=== PATIENT | female | born 1990 | race Caucasian/White ===

== ENCOUNTER 2017-10-01 14:26 | Emergency (ER) | payer OTHER ==
[~2017-10-01] VITALS: Ht 165.1 cm; Wt 112.2 kg
[~2017-10-01 14:26] MED LIST: ALBU0.0912 IH; ETAN50SO SUBQ; [UNRECOGNIZED DRUG - REMARK]
[2017-10-01 14:44] VITALS: BP 115/74
--- NOTE | 2017-10-01 15:30 | NUR ---
PT CAME IN FOR GENERALIZED ACHE, NAUSEA, AND COUGH, X3 DAYS. NO RESPIRATORY DISTRESS. A&OX4. ABLE TO VERBALIZE NEEDS. SITTING IN CHAIR WITH FAMILY SIDE. MD AWARE CONTINUE TO MONITOR.
[2017-10-01 15:43] VITALS: BP 115/74
--- NOTE | 2017-10-01 15:49 | NUR ---
Patient discharged with v/s stable. Written and verbal after care instructions given and explained. Patient alert, oriented and verbalized understanding of instructions. Ambulatory with steady gait. All questions addressed prior to discharge. ID band removed. Patient advised to follow up with PMD. Rx of ZOFRAN, IBUPROEN, TAMIFLU given. Patient educated on indication of medication including possible reaction and side effects. Opportunity to ask questions provided and answered.
== END 2017-10-01 15:49 | disposition home or self-care (01) ==
LOC: MED 14:26
DX: J11.1 Influenza due to unidentified influenza virus with other respiratory manifestations (principal); J45.909 Unspecified asthma, uncomplicated; Z88.6 Allergy status to analgesic agent
CPT/HCPCS: 36415; 71045; 87804; 99285

== ENCOUNTER 2018-11-14 14:56 | Emergency (ER) | payer OTHER ==
[~2018-11-14] VITALS: Ht 165.1 cm; Wt 112.5 kg
[2018-11-14 15:33] VITALS: BP 124/76
--- NOTE | 2018-11-14 17:00 | NUR ---
PT AMBULATED TO BED 12.
--- NOTE | 2018-11-14 17:00 | NUR ---
PATIENT PRESENTS TO ED WITH C/O SUDDEN ONSET OF N/V, DIZZINESS, AND GENERALIZED WEAKNESS X TODAY AMBULATORY WITH STEADY GAIT, FULL CLEAR SPEECH, NO RECENT INJURY OR COLD SYMPTOMS . DENIES WATERY/LOOSE STOOLS. SKIN IS PINK/WARM/DRY; AAOX4 WITH EVEN AND STEADY GAIT; LUNGS CLEAR BL; HR EVEN AND REGULAR; PT DENIES ANY FEVER, CP, SOB, OR COUGH AT THIS TIME; PATIENT STATES PAIN OF 0/10 AT THIS TIME; VSS; PATIENT POSITIONED FOR COMFORT; HOB ELEVATED; BEDRAILS UP X2; BED DOWN. ER MD MADE AWARE OF PT STATUS.
--- NOTE | 2018-11-14 17:15 | NUR ---
HANDED PT WATER; ENCOURAGED TO PROVIDE URINE SAMPLE
[2018-11-14] MEDS ORDERED: ONDANSETRON 4 MG TAB PO ONE (18:00)
--- NOTE | 2018-11-14 18:13 | NUR ---
PT VERBALIZED ALLOWING HER DAUGHTER CHAN CARRILLO TO ALL AND FULL DISCLOSURE OF HER HEALTH INFORMATION.
[2018-11-14 18:34] VITALS: BP 128/71
== END 2018-11-14 18:25 | disposition home or self-care (01) ==
LOC: MED 14:56
DX: B34.9 Viral infection, unspecified (principal); J45.909 Unspecified asthma, uncomplicated; Z88.6 Allergy status to analgesic agent; Z79.899 Other long term (current) drug therapy; Z98.890 Other specified postprocedural states
CPT/HCPCS: 99283; Q0162

== ENCOUNTER 2019-03-02 22:48 | Emergency (ER) | payer OTHER ==
[~2019-03-02] VITALS: Ht 165.1 cm; Wt 95.3 kg
[2019-03-02 22:51] VITALS: BP 150/95
--- NOTE | 2019-03-02 22:56 | NUR ---
PT AMBULATED TO BED 3. PROVIDED WITH URINE CUP.
--- NOTE | 2019-03-02 23:10 | NUR ---
PT BIB SELF C/O CHEST PAIN W/ BREATHING. PT STATES SHE WAS AT WORK AROUND 1730 W/ SUDDEN ONSET OF CHEST PAIN W/ INSPIRATION, PT FELT LIKE SHE COULD NOT CATCH HER BREATH; DENIES FEVER OR CHILLS. PT STATES 10/10 PAIN W/ INSPIRATION, DISCRIBED AT PULLING/TIGHTNESS. PT ACTING APPROPRIATLY, SPEAKING IN CLEAR AND COMPLETE SENTENCES. BREATHING EQUAL AND UNLABORED; LUNGS SOUNDS CLEAR BL. PT IN BED; BED IN LOWER LOCKED POSITION; PT PLACED ON BEDSIDE ROLL MACHINE OPERATOR. PMH: ASTHMA,
--- NOTE | 2019-03-02 23:12 | NUR ---
DR. PARTIDA AT BEDSIDE FOR EVALUATION.
[2019-03-02] MEDS ORDERED: KETOROLAC 60 MG/2 ML VIAL IM ONE (23:15)
[2019-03-02 23:30] VITALS: BP 144/91
== END 2019-03-02 23:30 | disposition home or self-care (01) ==
LOC: MED 22:48
DX: M94.0 Chondrocostal junction syndrome [Tietze] (principal); J45.909 Unspecified asthma, uncomplicated; Z79.899 Other long term (current) drug therapy
CPT/HCPCS: 71045; 81002; 81025; 93005; 96372; 99283; J1885; Q0092

== ENCOUNTER 2019-04-29 12:56 | Emergency (ER) | payer MEDICAID, OTHER ==
[~2019-04-29] VITALS: Ht 165.1 cm; Wt 109.8 kg
[2019-04-29 13:05] VITALS: BP 142/89
--- NOTE | 2019-04-29 13:08 | NUR ---
PT AMBULATED TO ER BED 11
--- NOTE | 2019-04-29 13:36 | NUR ---
XRAY AT BEDSIDE
--- NOTE | 2019-04-29 13:45 | NUR ---
28 y female c/o pain between right great toe and second toe since yesterday. white discharge noted upon inspection. pt also c/o pain to right 5th digit, states she smashed her finger into car while washing it. slight swelling at site. denies n/v/d, or chills/fever. aa0x4. bed is down, locked, bed rail x 1, ermd to see pt. hx psoriasis, asthma, arthritis
--- NOTE | 2019-04-29 14:03 | NUR ---
dr morales at bedside
[2019-04-29 14:11] VITALS: BP 139/87
--- NOTE | 2019-04-29 14:11 | NUR ---
Patient discharged with v/s stable. Written and verbal after care instructions given and explained. pt instructed to keep toes dry and clean. Patient verbalized understanding. Ambulatory with steady gait. All questions addressed prior to discharge. Advised to follow up with PMD.
== END 2019-04-29 14:11 | disposition home or self-care (01) ==
LOC: MED 12:56
DX: S63.616A Unspecified sprain of right little finger, initial encounter (principal); S90.421A Blister (nonthermal), right great toe, initial encounter; J45.909 Unspecified asthma, uncomplicated; Z79.899 Other long term (current) drug therapy; W23.0XXA Caught, crushed, jammed, or pinched between moving objects, initial encounter; Y93.89 Activity, other specified; Y92.89 Other specified places as the place of occurrence of the external cause; Y99.8 Other external cause status
CPT/HCPCS: 73140; 99283; Q0092

== ENCOUNTER 2019-05-13 16:23 | Emergency (ER) | payer MEDICAID ==
[~2019-05-13] VITALS: Ht 165.1 cm; Wt 111.6 kg
[2019-05-13 16:48] VITALS: BP 161/104
[2019-05-13] MEDS ORDERED: NEOMYCIN/POLYMYXIN/BACITRACIN 0.9 GM/1 PKT TP ONE ×2 (19:50→19:55)
[2019-05-13] MEDS ORDERED: IBUPROFEN 800 MG TAB PO ONE (19:50)
[2019-05-13 20:13] VITALS: BP 134/78
== END 2019-05-13 20:14 | disposition home or self-care (01) ==
LOC: MED 16:23
DX: S90.821A Blister (nonthermal), right foot, initial encounter (principal); J45.909 Unspecified asthma, uncomplicated; Z79.899 Other long term (current) drug therapy; X58.XXXA Exposure to other specified factors, initial encounter; Y93.89 Activity, other specified; Y92.89 Other specified places as the place of occurrence of the external cause; Y99.8 Other external cause status
CPT/HCPCS: 99283

== ENCOUNTER 2019-05-20 18:16 | Emergency (ER) | payer MEDICAID ==
[~2019-05-20] VITALS: Ht 165.1 cm; Wt 108.9 kg
[2019-05-20 18:49] VITALS: BP 155/100
--- NOTE | 2019-05-20 18:53 | NUR ---
LACY. AA0X4. PT TO WAIT IN ER LOBBY.
--- NOTE | 2019-05-20 18:56 | NUR ---
WILL CONTINE TO MONITOR PTS BP 155/100
[2019-05-20] MEDS ORDERED: ONDANSETRON 4 MG ODT PO ONE ×2 (19:35→23:45)
[2019-05-20 20:48] LABS: BASOPHILS % (AUTO) 0.2 % (0.0-2.0); EOSINOPHILS % (AUTO) 0.2 % (0.0-4.0); HEMATOCRIT 36.6 % (36-48); HEMOGLOBIN 12.2 g/dL (12.0-16.0); LYMPHOCYTES # (AUTO) 1.3 K/uL (2.5-16.5); LYMPHOCYTES % (AUTO) 8.7 % (20.5-51.1); MEAN CORPUSCULAR HEMOGLOBIN 28 pg (27-31); MEAN CORPUSCULAR HGB CONC 33 g/dL (33-37); MEAN CORPUSCULAR VOLUME 84.5 fL (80-94); MONOCYTES # (AUTO) 0.7 K/uL (0.8-1.0); MONOCYTES % (AUTO) 4.9 % (1.7-9.3); NEUTROPHILS # (AUTO) 12.7 K/uL (1.8-7.7); PLATELET COUNT (AUTO) 307 K/uL (140-450); RED BLOOD CELL COUNT(AUTO) 4.33 MIL/uL (4.20-5.40); RED CELL DISTRIBUTION WIDTH 12.6 % (11.6-13.7); WHITE BLOOD COUNT (AUTO) 14.8 K/uL (4.8-10.8)
[2019-05-20 21:17] LABS: ANION GAP 10.8 (8-16); CARBON DIOXIDE 29.1 mmol/L (21-32); POTASSIUM 3.9 mmol/L (3.5-5.1)
[2019-05-20 21:18] LABS: ALBUMIN 3.9 g/dL (3.4-5.0); CREATININE 0.9 mg/dL (0.6-1.3); TOTAL BILIRUBIN 0.4 mg/dL (0.0-1.0)
--- NOTE | 2019-05-20 23:05 | NUR ---
PT AMBULATED TO BED 12 WITH STEADY GAIT. FRIEND ACCOMPANYING.
--- NOTE | 2019-05-20 23:15 | NUR ---
28 Y/O FEMALE PRESENTS TO ED. C/O LEFT FLANK ACHING PAIN RADIATES TO BACK 07/07. PT STATES PAIN STARTED YESTERDAY AND WORSENED TODAY. PT DENIES TAKING ANY MEDICATION TO RELIEVE PAIN. PT HAS HX OF ARTHRITIS. PT VSS. ERMD AWARE. WILL CONTINUE TO MONITOR.
[2019-05-20] MEDS ORDERED: KETOROLAC 30 MG/ML VIAL IM ONE (23:45)
[2019-05-21 02:05] VITALS: BP 135/67
--- NOTE | 2019-05-21 05:35 | NUR ---
PT DISCHARGED WITH PAPERWORK. RX MOTRIN, ZOFRAN, NORCO, CIPROFLOXACIN, FLOMAX. EDUCATED PT REGARDING MEDICATIONS AND S/E. EDUCATED PT REGARDING D/C DIAGNOSIS. PT VERBALIZED UNDERSTANDING OF TEACHING. TOLD PT TO FOLLOW UP WITH PCP AND WHEN TO RETURN TO ED. PT VSS. ALL QUESTIONS ANSWERED.
== END 2019-05-21 02:05 | disposition home or self-care (01) ==
LOC: MED 18:16
DX: N20.0 Calculus of kidney (principal); M19.90 Unspecified osteoarthritis, unspecified site; J45.909 Unspecified asthma, uncomplicated; Z79.899 Other long term (current) drug therapy
CPT/HCPCS: 36415; 74176; 80053; 81025; 84702; 85025; 96372; 99284; J1885; Q0162

== ENCOUNTER 2019-06-09 21:59 | Emergency (ER) | payer MEDICAID ==
[~2019-06-09] VITALS: Ht 165.1 cm; Wt 108.4 kg
[2019-06-09 22:02] VITALS: BP 152/93
--- NOTE | 2019-06-09 22:08 | NUR ---
PT AMBULATED TO BED #7
[2019-06-09] MEDS ORDERED: ACETAMINOPHEN 325 MG TAB PO ONE (22:40)
--- NOTE | 2019-06-09 22:40 | NUR ---
PT WENT TO CT
--- NOTE | 2019-06-09 22:41 | NUR ---
PATIENT TAKEN TO CT.
--- NOTE | 2019-06-09 22:50 | NUR ---
PT RETURN FROM CT
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
--- NOTE | 2019-06-09 23:31 | NUR ---
Dr. Vaughn examinig patient.
[2019-06-10 00:35] VITALS: BP 152/93
--- NOTE | 2019-06-10 01:23 | NUR ---
PT DISCHARGED WITH PAPERWORK. NO RX PROVIDED. EDUCATED PT REGARDING D/C DIAGNOSIS AND INSTRUCTIONS. PT VERBALIZED UNDERSTANDING OF TEACHING. TOLD PT TO FOLLOW UP WITH PCP AND WHEN TO RETURN TO ED. PT VSS. ALL QUESTIONS ANSWERED.
== END 2019-06-10 01:23 | disposition home or self-care (01) ==
LOC: MED 21:59
DX: M54.2 Cervicalgia (principal); R51 Headache; M54.6 Pain in thoracic spine; J45.909 Unspecified asthma, uncomplicated; Z79.899 Other long term (current) drug therapy; V49.59XA Passenger injured in collision with other motor vehicles in traffic accident, initial encounter; Y93.89 Activity, other specified; Y92.488 Other paved roadways as the place of occurrence of the external cause; Y99.8 Other external cause status
CPT/HCPCS: 70450; 72125; 99284

== ENCOUNTER 2019-07-29 21:22 | Emergency (ER) | payer OTHER ==
[~2019-07-29] VITALS: Ht 165.1 cm; Wt 106.6 kg
[2019-07-29 21:25] VITALS: BP 136/90
--- NOTE | 2019-07-29 21:28 | NUR ---
TO LOBBY A/W BED AMBULATORY
--- NOTE | 2019-07-29 22:04 | NUR ---
PT AMBULATED TO ER CHAIR A
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
--- NOTE | 2019-07-29 22:55 | NUR ---
PATIENT ELOPED FROM FACILITY. DISCHARGE INSTRUCTIONS NOT GIVEN TO PATIENT. DR. GERARDO NOTIFIED.
== END 2019-07-29 22:45 | disposition left against medical advice (07) ==
LOC: MED 21:22
DX: R06.4 Hyperventilation (principal); F41.9 Anxiety disorder, unspecified; J45.909 Unspecified asthma, uncomplicated; Z79.899 Other long term (current) drug therapy; Z79.51 Long term (current) use of inhaled steroids
CPT/HCPCS: 99283

== ENCOUNTER 2019-10-09 00:01 | Emergency (ER) | payer OTHER ==
[~2019-10-09] VITALS: Ht 165.1 cm; Wt 102.1 kg
[2019-10-09 00:03] VITALS: BP 155/90
--- NOTE | 2019-10-09 00:03 | NUR ---
29 y/o female presents to ED with C/O right hand edeama x2 days. Hx of chirrotic arthritis. Recieves injections but has not had any of her medication for 2 days. Right hand edema causing throbbing,. 6/10 pain. Bilat upper extremity pulses strong and regular. Cap refill <3 sec. Non-pitting edema present. Cannot make a fist in right hand. VSS. ER MD aware. Continue to monitor.
--- NOTE | 2019-10-09 00:03 | NUR ---
TO BED # 07 AMBULATORY
[2019-10-09] MEDS ORDERED: KETOROLAC 60 MG/2 ML VIAL IM ONE (00:25)
--- NOTE | 2019-10-09 00:53 | NUR ---
Dr. Diaz examining patient.
--- NOTE | 2019-10-09 01:07 | NUR ---
Patient discharged with v/s stable. Written and verbal after care instructions given and explained. Patient alert, oriented and verbalized understanding of instructions. Ambulatory with steady gait. All questions addressed prior to discharge. ID band removed. Patient advised to follow up with PMD. Rx of KEFLEX, MOTRIN,PREDNISONE given. Patient educated on indication of medication including possible reaction and side effects. Opportunity to ask questions provided and answered.
[2019-10-09 01:11] VITALS: BP 155/90
== END 2019-10-09 01:07 | disposition home or self-care (01) ==
LOC: MED 00:01
DX: L03.113 Cellulitis of right upper limb (principal); M79.644 Pain in right finger(s); J45.909 Unspecified asthma, uncomplicated; Z98.890 Other specified postprocedural states; Z79.899 Other long term (current) drug therapy
CPT/HCPCS: 96372; 99283; J1885

== ENCOUNTER 2021-07-31 17:48 | Emergency (ER) | payer OTHER ==
[~2021-07-31] VITALS: Ht 165.1 cm; Wt 117.5 kg
[2021-07-31 18:04] VITALS: BP 137/77
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
[2021-07-31] MEDS ORDERED: KETOROLAC 30 MG/ML VIAL IM ONE (18:40)
--- NOTE | 2021-07-31 18:44 | NUR ---
RADIOLOGY AT BEDSIDE TAKING XRAY
--- NOTE | 2021-07-31 19:06 | NUR ---
Pt report given to GUMARO. Transfer of care at this time.
[2021-07-31] MEDS ORDERED: LIDOCAINE MPF 1% 10 MG/ML VIAL INJ ONE (19:25)
--- NOTE | 2021-07-31 19:30 | NUR ---
DAVID CERRATO AT PT BEDSIDE WITH LIDOCAINE.
--- NOTE | 2021-07-31 22:00 | NUR ---
Patient discharged with v/s stable. Written and verbal after care instructions given and explained. Patient verbalized understanding. Ambulatory with steady gait. ARM BAND REMOVED All questions addressed prior to discharge. Advised to follow up with PMD.
== END 2021-07-31 22:00 | disposition home or self-care (01) ==
LOC: MED 17:48
DX: S63.617A Unspecified sprain of left little finger, initial encounter (principal); J45.909 Unspecified asthma, uncomplicated; Z79.899 Other long term (current) drug therapy; W23.0XXA Caught, crushed, jammed, or pinched between moving objects, initial encounter; Y93.89 Activity, other specified; Y92.89 Other specified places as the place of occurrence of the external cause; Y99.8 Other external cause status
CPT/HCPCS: 73130; 96372; 99283; J1885; J2001; Q0092

== ENCOUNTER 2021-10-22 20:24 | Emergency (ER) | payer OTHER ==
[~2021-10-22] VITALS: Ht 165.1 cm; Wt 116.6 kg
[2021-10-22 20:41] VITALS: BP 145/96
--- NOTE | 2021-10-22 20:46 | NUR ---
PATIENT TO LOBBY WITH URINE CUP
[2021-10-22] MEDS ORDERED: NACL 0.9% 1,000 ML IV SCH (22:10)
[2021-10-22] MEDS ORDERED: ONDANSETRON 4 MG/2 ML VIAL IVP ONE (22:10)
[2021-10-22] MEDS ORDERED: MORPHINE SULFATE 4 MG/ML SYR IVP ONE (22:10)
[2021-10-22 23:25] LABS: BASOPHILS % (AUTO) 0.3 % (0.0-2.0); EOSINOPHILS # (AUTO) 0.2 K/uL (0-0.4); EOSINOPHILS % (AUTO) 2.6 % (0.0-4.0); HEMATOCRIT 32.9 % (36-48); HEMOGLOBIN 11.1 g/dL (12.0-16.0); LYMPHOCYTES # (AUTO) 2.7 K/uL (2.5-16.5); MEAN CORPUSCULAR HEMOGLOBIN 27 pg (27-31); MEAN CORPUSCULAR HGB CONC 34 g/dL (33-37); MEAN CORPUSCULAR VOLUME 80.3 fL (80-94); MONOCYTES # (AUTO) 0.5 K/uL (0.8-1.0); MONOCYTES % (AUTO) 5.8 % (1.7-9.3); NEUTROPHILS # (AUTO) 4.7 K/uL (1.8-7.7); NEUTROPHILS % (AUTO) 58.3 % (42.2-75.2); PLATELET COUNT (AUTO) 303 K/uL (140-450); RED BLOOD CELL COUNT(AUTO) 4.09 MIL/uL (4.20-5.40); RED CELL DISTRIBUTION WIDTH 14.2 % (11.6-13.7); WHITE BLOOD COUNT (AUTO) 8.1 K/uL (4.8-10.8)
[2021-10-23 00:23] LABS: ALBUMIN 3.9 g/dL (3.4-5.0); ANION GAP 11.2 (8-16); CARBON DIOXIDE 27.5 mmol/L (21-32); POTASSIUM 3.7 mmol/L (3.5-5.1); TOTAL BILIRUBIN 0.2 mg/dL (0.0-1.0)
[2021-10-23 00:25] VITALS: BP 145/96
--- NOTE | 2021-10-23 00:25 | NUR ---
William overton in [facility] - 10/23/21 at 0531 by NICOLE patient d/c without paperwork
--- NOTE | 2021-10-23 00:25 | NUR ---
William overton in ED - 10/23/21 at 0531 by NICOLE PATIENT ELOPED FROM FACILITY. DISCHARGE INSTRUCTIONS NOT GIVEN TO PATIENT. DR. MEEK NOTIFIED.
--- NOTE | 2021-10-23 00:25 | NUR ---
Patient discharged with v/s stable. Written and verbal after care instructions not given and explained as patient left without discharge paperwork. Unable to ask questions addressed prior to discharge as patient left. Advised to follow up with PMD.
[2021-10-23 00:29] LABS: CREATININE 0.7 mg/dL (0.6-1.3)
[2021-10-23] MEDS ORDERED: CEPH-588 PO (01:28)
== END 2021-10-23 00:25 | disposition home or self-care (01) ==
LOC: MED 20:24
DX: N39.0 Urinary tract infection, site not specified (principal); R11.2 Nausea with vomiting, unspecified; Z79.899 Other long term (current) drug therapy
CPT/HCPCS: 36415; 80053; 81002; 83690; 84703; 85025; 99284